=== PATIENT | female | born 1955 | race Caucasian/White ===

== ENCOUNTER → 2017-01-27 | Day surgery (SDC) | payer MEDICARE, OTHER | END | disposition home or self-care (01) | LOC: SDC 12:44 | DX: N30.20 Other chronic cystitis without hematuria (principal); N32.81 Overactive bladder; N95.2 Postmenopausal atrophic vaginitis; N32.89 Other specified disorders of bladder; N39.41 Urge incontinence | CPT/HCPCS: C1758; J0585; J2704; Q9967 ==